=== PATIENT | female | born 1960 | race Caucasian/White ===

== ENCOUNTER 2023-06-28 14:21 | Outpatient (OUT) | payer BC, SELFPAY ==
[2023-06-28] MEDS: FLU VACC QS 23-24(6MS UP)CEL/PF 60 MCG/0.5 ML SYRINGE IM (15:00)
== END 2023-06-28 14:22 | disposition home or self-care (01) ==
LOC: LAB 07-03 14:22
PROVIDERS: Family Provider Family Medicine
DX: Z23 Encounter for immunization (principal)
CPT/HCPCS: 90674; G0008